=== PATIENT | female | born 1930 | race Caucasian/White ===

== ENCOUNTER 2016-05-04 12:25 | Outpatient (CLI) ==
[2016-03-12 16:49] VITALS: BMI 34.2
== END 2016-05-04 12:26 | disposition home or self-care (01) ==
LOC: LAB 12:25
PROVIDERS: ATTEND Emergency Medicine
DX: S01.90XA Unspecified open wound of unspecified part of head, initial encounter (principal)
CPT/HCPCS: 87070; 87186

== ENCOUNTER 2016-05-09 00:19 | Outpatient (CLI) | payer OTHER ==
[2016-05-09 00:51] VITALS: BMI 33.9
== END 2016-05-09 00:20 | disposition home or self-care (01) ==
LOC: AMBL 00:19
PROVIDERS: ATTEND Family Medicine
DX: R11.10 Vomiting, unspecified (principal); T82.7XXA Infection and inflammatory reaction due to other cardiac and vascular devices, implants and grafts, initial encounter

== ENCOUNTER 2016-05-09 00:42 | Emergency (ER) | payer OTHER ==
[2016-05-09 00:51] VITALS: BP 173/68; TEMP 98.7; BMI 33.9
[2016-05-09] MEDS ORDERED: URO-JET MUCOUSMEMB STA (01:00)
[2016-05-09] MEDS ORDERED: SODIUM CHLORIDE 1,000 ML IV STA (01:02)
[2016-05-09 01:15] LABS: BASOPHILS % (AUTO) 0.4 % (0.0-3.0); EOSINOPHILS # (AUTO) 0.1 K/ul (0.0-0.7); EOSINOPHILS % (AUTO) 0.4 % (0.0-7.0); IMMATURE GRANULOCYTE % (AUTO) 0.9 % (0.0-5.0); MEAN CORPUSCULAR HEMOGLOBIN 30.2 pg (27.0-31.0); MEAN CORPUSCULAR HGB CONC 33.3 (31.8-35.4); MEAN CORPUSCULAR VOLUME 90.5 fl (81.0-99.0); MONOCYTES # (AUTO) 0.4 K/uL (0.4-2.0); MONOCYTES % (AUTO) 3.8 (0-10); NEUTROPHILS # (AUTO) 9.6 K/ul (2.0-6.9); NEUTROPHILS % (AUTO) 85.5; PLATELET COUNT 168 10^3/uL (140-440); RED BLOOD COUNT 3.98 10^6/ul (4.20-5.40); WHITE BLOOD COUNT 11.19 K/ul (4.6-10.2)
[2016-05-09 01:15] LABS: ABG BASE EXCESS 5 (-2.0-2.0); ABG HCO3 27.1 (22.0-26.0); ABG PCO2 31.7 mmHg (35-45); ABG PH 7.541 (7.35-7.45)
[2016-05-09 01:16] LABS: ABG TCO2 28 (22.0-28.0)
[2016-05-09 01:19] LABS: PROTHROMBIN TIME 14.4 SEC (9.3-11.0)
[2016-05-09 01:29] LABS: ALBUMIN 3.2 g/dL (3.4-5.0); ALBUMIN/GLOBULIN RATIO 0.76; ANION GAP 15.9; BILIRUBIN,TOTAL 0.59 mg/dL (0.00-1.20); BUN/CREATININE RATIO 23.96; CREATININE 1.21 mg/dL (0.60-1.30); POTASSIUM 3.9 mmol/L (3.5-5.10); TOTAL PROTEIN 7.4 g/dL (5.8-8.1)
[2016-05-09] MEDS ORDERED: ZOFRAN 4 MG/2 ML ONE (01:49)
[2016-05-09 02:00] LABS: TROPONIN I 0.062 ng/ml (0.0000-0.4000)
[2016-05-09] MEDS ORDERED: ZOFRAN 4 MG/2 ML IVP STA (02:02)
--- NOTE | 2016-05-09 02:35 | CT ---
EXAM: CT scan brain without contrast HISTORY: Vomiting COMPARISON: CT scan brain 07/31/2015 FINDINGS: Contiguous axial images obtained from the skull base to the convexities without contrast utilizing 5-mm collimation. Sagittal and coronal reconstructions were imaged reviewed.. There is a stable left transfrontal ventriculostomy catheter which extends into the right lateral ventricle.. There has been interval increase in size of the lateral, third and fourth ventricles. There is mod erate periventricular hypodensity noted compatible with chronic microvascular disease. Atherosclero tic changes are seen involving the vertebral and internal carotids at the level cavernous sinus.. T here is an aneurysm clip in the left parasellar region IMPRESSION: Stable appearing left sided ventriculostomy catheter with interval development of hydrocephalus. .
--- NOTE | 2016-05-09 02:35 | CT ---
Exam: CT of the chest without contrast History: Chest pain and emesis Technique: [address] of the chest without intravascular contrast FINDINGS: Minor bilateral dependent atelectasis. The lungs are clear otherwise. Atherosclerotic c alcification of the aorta and coronary arteries. Mitral annulus calcifications. No pathologic lymp h node enlargement mediastinum. Left approach pacemaker. Left chest wall ventriculoperitoneal shun t. Left shoulder arthroplasty. No acute findings of the chest wall soft tissues or bony thorax. Se e abdominal CT for upper abdomen. Impression: 1. Minor dependent atelectasis. No acute findings of the chest otherwise.
[2016-05-09 02:54] LABS: BILIRUBIN,URINE Negative (NEGATIVE); KETONES,URINE Trace (NEGATIVE); LEUKOCYTE ESTERASE ,URINE Negative (NEGATIVE); NITRITE,URINE Negative (NEGATIVE); PH,URINE 5.5 (5-9); PROTEIN,URINE Negative (NEGATIVE); URINE, BLOOD Negative (NEGATIVE)
--- NOTE | 2016-05-09 02:54 | CT ---
EXAM: CT scan abdomen pelvis without contrast HISTORY: Vomiting COMPARISON: None. FINDINGS: Contiguous axial images were obtained from lung bases to the symphysis pubis without cont rast utilizing 3-mm collimation.. Sagittal coronal reconstructions were imaged and reviewed. There is a small hiatal hernia. There has been prior cholecystectomy.. The liver, pancreas, spleen and ad renal glands have normal unenhanced CT appearance. Atherosclerotic changes are seen involving the ab dominal aorta without aneurysm formation. Simple cysts are seen within the bilateral kidneys.. Jennifer nt extends into the left abdomen. There is a tiny umbilical hernia containing only fat. There has been prior hysterectomy. The rectum is distended with stool. There is no free fluid.. Postoperati ve changes are seen within the lower lumbar spine. There is a chronic-appearing compression deformi ty the L2 vertebral body. IMPRESSION: Status post cholecystectomy. ASVD without aneurysm. Simple bilateral renal cyst. Mildly distended rectum which contains retained stool. Status post hysterectomy.
[2016-05-09 02:55] LABS: ADD URINE MICROSCOPIC NO
--- NOTE | 2016-05-09 04:05 | ED.PDOC ---
General ED Provider: Dr. PAOLO RODRIGUEZ-ER Chief Complaint: Nausea/Vomiting Stated Complaint: had levaquin for pseudomonas on shunt site--began to vomit... Time Seen by Physician: 00:45 Mode of Arrival: Ambulance Information Source: Jail, EMT Exam Limitations: No limitations Primary Care Provider: LUIS MIGUEL ESPAÑA Nursing and Triage Documentation Reviewed and Agree: Yes GI Complaint Exam - Vomiting/Diarrhea Complaint/Exam Onset/Duration: 30 min Symptoms Are: Resolved Initial Severity: Mild Current Severity: Mild Character of Vomiting: Reports: Non-bilious Aggravating: Reports: None Alleviating: Reports: None Associated Signs and Symptoms: Denies: Dizziness, Light-headedness, Melena, Hematemesis, Fever, Abdominal pain, Cramping Recent Positive Test: No Use of Oral Contraceptives: No Use of Depoprovera: No Compliant With Contraceptive Use: No Non-GI Risk Factors: Reports: Vomiting due to neuro Surgical Obstruction Risk Factors: Reports: None Related Surgical History: Reports: None Abdominal Findings: Present: None Kussmaul Respirations Present: No Differential Diagnoses: Viral Gastroenteritis, UTI Review of Systems - Review Of Systems Constitutional: Reports: No symptoms Eyes: Reports: No symptoms Ears, Nose, Mouth, Throat: Reports: No symptoms Respiratory: Reports: No symptoms Cardiac: Reports: No symptoms GI: Reports: Nausea, Vomiting : Reports: No symptoms Musculoskeletal: Reports: No symptoms Skin: Reports: No symptoms Neurological: Reports: No symptoms Endocrine: Reports: No symptoms Hematologic/Lymphatic: Reports: No symptoms All Other Systems: Reviewed and Negative Past Medical History - Past Medical History Previously Healthy: No Endocrine: Reports: DM 2, Hypothyroid, Dyslipidemia Cardiovascular: Reports: CAD, Hypertension Respiratory: Reports: None Hematological: Reports: None Gastrointestinal: Reports: GERD Genitourinary: Reports: None 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), Anxiety Musculoskeletal: Reports: None Cancer: Reports: None Last Menstrual Period: unk Other Pertinent Past Medical History: brain shunt, pacemaker, cholecystectomy - Surgical History General Surgical History: Reports: Cholecystectomy, Pacemaker, Other (brain shunt) - Family History Family History: Reports: Other (daughter with ruptured aneurysm(recovered)), Unknown - Social History Smoking Status: Never smoker Hx Substance Use: No Alcohol Screening: None Physical Exam - Physical Exam Appearance: Well-appearing, No pain distress, Well-nourished Eyes: RAMAKRISHNA, EOMI, Conjunctiva clear ENT: Ears normal, Nose normal, Oropharynx normal Neck: Supple Respiratory: Airway patent, Breath sounds clear, Breath sounds equal, Respirations nonlabored Cardiovascular: RRR, Pulses normal, No rub, No murmur GI/: Soft, Nontender, No masses, Bowel sounds normal, No Organomegaly Musculoskeletal: Normal strength Skin: Warm, Dry, Normal color Neurological: Sensation intact, Motor intact, Reflexes intact, Cranial nerves intact, Alert, Oriented Psychiatric: Affect appropriate, Mood appropriate Interpretation - Radiology Interpretation Radiology Interpretation By: Radiologist Radiology Results: Positive Exam Interpreted: CT Scan ("hydrocephalus on ct scan") Re-Evaluation - Re-Evaluation Time of Re-Evaluation: 04:05 Status: Improved Vital Signs Stable: Yes Pain Level: 0 Appearance: NAD Lungs: Clear Skin: Warm and Dry Neuro: Alert and Oriented X3 CV: RRR Physician Notification - Case Discussed Physician Notified: dr españa Time of Notification: 04:06 Endorsed To/Discussed With: family only [facility] Critical Care Note - Critical Care Note Total Time (mins): 0 Course - Course Hematology/Chemistry: 05/09/16 00:45 05/09/16 00:45 Orders, Labs, Meds: Lab Review 05/09/16 05/09/16 05/09/16 00:45 00:59 01:00 WBC 11.19 H RBC 3.98 L Hgb 12.0 Hct 36.0 L MCV 90.5 MCH 30.2 MCHC 33.3 RDW Coeff of Tayo 13.6 Plt Count 168 Immature Gran % (Auto) 0.9 Neut % (Auto) 85.5 Lymph % (Auto) 9.0 L Potter % (Auto) 3.8 Eos % (Auto) 0.4 Baso % (Auto) 0.4 Immature Gran # (Auto) 0.1 Neut # 9.6 H Lymph # 1.0 Potter # 0.4 Eos # 0.1 Baso # 0.0 PT 14.4 H INR 1.40 Puncture Site Rr O2 Saturation 99.0 ABG pH 7.541 H* ABG pCO2 31.7 L ABG pO2 123.0 H ABG HCO3 27.1 H ABG Total CO2 28 ABG Base Excess 5 H Fahad Test + O2 Delivery Device Nc Oxygen Liter Flow 2.00 FiO2 % 28.0 Sodium 137 Potassium 3.9 Chloride 101 Carbon Dioxide 24 Anion Gap 15.9 BUN 29 H Creatinine 1.21 Estimated GFR (MDRD) 42.00 BUN/Creatinine Ratio 23.96 Glucose 199 H Calcium 9.0 Total Bilirubin 0.59 AST 13 L ALT 10 L Alkaline Phosphatase 60 Total Creatine Kinase 46 Troponin I 0.0620 Total Protein 7.4 Albumin 3.2 L Globulin 4.2 Albumin/Globulin Ratio 0.76 Amylase 46 Lipase 4 L Urine Color Urine Clarity Urine pH Ur Specific [place] Urine Protein Urine Glucose (UA) Urine Ketones Urine Blood Urine Nitrite Urine Bilirubin Urine Urobilinogen Ur Leukocyte Esterase 05/09/16 02:30 WBC RBC Hgb Hct MCV MCH MCHC RDW Coeff of Tayo Plt Count Immature Gran % (Auto) Neut % (Auto) Lymph % (Auto) Potter % (Auto) Eos % (Auto) Baso % (Auto) Immature Gran # (Auto) Neut # Lymph # Potter # Eos # Baso # PT INR Puncture Site O2 Saturation ABG pH ABG pCO2 ABG pO2 ABG HCO3 ABG Total CO2 ABG Base Excess Fahad Test O2 Delivery Device Oxygen Liter Flow FiO2 % Sodium Potassium Chloride Carbon Dioxide Anion Gap BUN Creatinine Estimated GFR (MDRD) BUN/Creatinine Ratio Glucose Calcium Total Bilirubin AST ALT Alkaline Phosphatase Total Creatine Kinase Troponin I Total Protein Albumin Globulin Albumin/Globulin Ratio Amylase Lipase Urine Color Yellow Urine Clarity Clear Urine pH 5.5 Ur Specific [place] 1.025 Urine Protein Negative Urine Glucose (UA) Negative Urine Ketones Trace Urine Blood Negative Urine Nitrite Negative Urine Bilirubin Negative Urine Urobilinogen 0.2 Ur Leukocyte Esterase Negative Orders Category Date Time Status ABG DRAW REQUEST Stat CARDIO 05/09/16 00:59 Completed EKG-(ED ONLY) Stat CARDIO 05/09/16 00:59 Completed ED IV/MEDIPORT/POWERPORT .ONCE EMERGENCY 05/09/16 01:02 Active [place] [ED CATHETER INSERTION AND CARE] .ONCE EMERGENCY 05/09/16 01:00 Active IV [ED IV/MEDIPORT/POWERPORT] .ONCE EMERGENCY 05/09/16 00:52 Active ABG Stat LAB 05/09/16 00:59 Completed AMYLASE Stat LAB 05/09/16 00:45 Completed BLOOD CULTURE Stat LAB 05/09/16 01:30 Received CBC W/ AUTO DIFF Stat LAB 05/09/16 00:45 Completed COMPREHENSIVE METABOLIC PANEL Stat LAB 05/09/16 00:45 Completed CREATINE KINASE Stat LAB 05/09/16 01:00 Completed LIPASE Stat LAB 05/09/16 00:45 Completed PT WITH INR Stat LAB 05/09/16 00:45 Completed TROPONIN I Stat LAB 05/09/16 01:00 Completed URINALYSIS C & S IF INDICATED Stat LAB 05/09/16 02:30 Completed 0.9 % Sodium Chloride [Saline Flush] MEDS 05/09/16 00:52 Ordered 1 syr IVF PRN PRN 0.9 % Sodium Chloride [Saline Flush] MEDS 05/09/16 01:02 Ordered 1 syr IVF PRN PRN Lidocaine HCl [Uro-Jet] MEDS 05/09/16 01:00 Discontinued 10 ml [id number] ONCE STA Ondansetron HCl/Pf [Zofran 4 mg/2 ml] MEDS 05/09/16 01:49 Discontinued 8 mg .ROUTE .STK-MED ONE Ondansetron HCl/Pf [Zofran 4 mg/2 ml] MEDS 05/09/16 02:02 Discontinued 8 mg IVP ONCE STA Sodium Chloride 0.9% [Sodium Chloride] 1,000 ml MEDS 05/09/16 01:02 Active IV 100 mls/hr CT ABDOMEN/PELVIS WO CONTRAST Stat RADS 05/09/16 01:[address] CHEST W/O CONTRAST Stat RADS 05/09/16 01:[address] HEAD W/O CONTRAST Stat RADS 05/09/16 01:01 Completed Medications Generic Name Dose Route Start Last Admin Trade Name Freq PRN Reason Stop Dose Admin Sodium Chloride 1,000 mls @ 100 mls/hr 05/09/16 01:02 05/09/16 01:09 Sodium Chloride IV 05/09/16 11:01 100 mls/hr .Q10H STA Administration Sodium Chloride 1 syr 05/09/16 00:52 Saline Flush IVF PRN PRN To flush IV Sodium Chloride 1 syr 05/09/16 01:02 Saline Flush IVF PRN PRN To flush IV Discontinued Medications Generic Name Dose Route Start Last Admin Trade Name Freq PRN Reason Stop Dose Admin Lidocaine HCl 10 ml 05/09/16 01:00 05/09/16 01:09 Uro-Jet MUCOUSMEMB 05/09/16 01:01 Not Given ONCE STA Ondansetron HCl 8 mg 05/09/16 02:02 05/09/16 02:04 Zofran 4 Mg/2 Ml IVP 05/09/16 02:03 8 mg ONCE STA Administration family does not want to consider changing shunt--only wants comfort measures Vital Signs: Temp Pulse Resp BP Pulse Ox 05/09/16 00:43 98.7 F 74 18 173/68 H 92 L Departure - Departure Time of Disposition: 04:06 Disposition: TRANSFER SNF Discharge Problem: Vomiting Instructions: Acute Nausea and Vomiting (ED) Condition: Stable Pt referred to PMD for follow-up: Yes Additional Instructions: stop levaquin--talk with pmd about antbx---continue zofran q 4hrs for nausea Allergies/Adverse Reactions: Allergies adhesive Adverse Reaction (Unverified 04/19/14 10:27) losartan [Losartan] Adverse Reaction (Verified 08/31/13 18:22) iv contrast Adverse Reaction (Uncoded 08/31/13 18:22) Home Medications: Ambulatory Orders Acetaminophen [Tylenol] 325 mg PO Q6H PRN 08/31/13 Ipratropium/Albuterol Sulfate [Duoneb 0.5 mg-3 mg/3 ml Soln] 3 ml NEB Q6HR PRN 08/31/13 Levetiracetam [Keppra] 500 mg PO DAILY 08/31/13 Levothyroxine Sodium [Synthroid] 50 mcg PO QDAC 08/31/13 Metoprolol Succinate [Toprol Xl] 25 mg PO DAILY 08/31/13 Omeprazole [Prilosec] 20 mg PO QDAC 08/31/13 Ondansetron HCl [Zofran] 4 mg PO Q6HR PRN 08/31/13 Potassium Chloride 10 meq PO DAILY 08/31/13 Hydrochlorothiazide 12.5 mg PO DAILY #1 tablet 09/01/13 Ferrous Sulfate 324 mg PO DAILY 04/19/14 Hydralazine HCl 10 mg PO DAILY 04/19/14 Calcium Carbonate/Vitamin D3 [Calcium 600 + Vit D 400 Tablet] 1 tab PO DAILY Citalopram Hydrobromide [Celexa] 20 mg PO DAILY 03/10/16 Cyanocobalamin (Vitamin B-12) [Vitamin B-12] 1,000 mcg PO DAILY 03/10/16 Levetiracetam [Keppra] 250 mg PO BEDTIME 03/10/16 Simvastatin [Zocor] 20 mg PO DAILY 03/10/16 Tiotropium Homer [Spiriva] 1 cap IH DAILY 03/10/16 Levofloxacin [Levaquin] 250 mg PO DAILY #5 tablet 03/15/16 Olanzapine [Zyprexa] 2.5 mg PO BEDTIME #1 tablet 03/15/16 Magnesium Hydroxide [Milk of Magnesia] 400 mg PO PRN PRN 05/09/16 Warfarin Sodium [Coumadin] 3 mg PO DAILY 05/09/16 Disposition Discussed With: Family
== END 2016-05-09 05:04 ==
LOC: ED 00:42
DX: R11.2 Nausea with vomiting, unspecified (principal); I10 Essential (primary) hypertension; E11.9 Type 2 diabetes mellitus without complications; E03.9 Hypothyroidism, unspecified; E78.5 Hyperlipidemia, unspecified; I25.10 Atherosclerotic heart disease of native coronary artery without angina pectoris; Z79.01 Long term (current) use of anticoagulants; Z79.899 Other long term (current) drug therapy; Z98.2 Presence of cerebrospinal fluid drainage device; Z86.73 Personal history of transient ischemic attack (TIA), and cerebral infarction without residual deficits; Z95.0 Presence of cardiac pacemaker; Z87.19 Personal history of other diseases of the digestive system
CPT/HCPCS: 36415; 80053; 81001; 82150; 82550; 82803; 83690; 84484; 85025; 85610; 87040; 93005; 93010; 96374; 99284

== ENCOUNTER 2016-05-09 05:07 | Outpatient (CLI) | payer OTHER ==
[2016-05-09 00:51] VITALS: BMI 33.9
== END 2016-05-09 05:08 | disposition home or self-care (01) ==
LOC: AMBL 05:07
PROVIDERS: ATTEND Family Medicine
DX: R11.2 Nausea with vomiting, unspecified (principal)